=== PATIENT | female | born 1980 | race Caucasian/White ===

== ENCOUNTER 2017-11-24 07:16 | Inpatient (IN) | payer BC, OTHER ==
[2017-11-24] MEDS ORDERED: Dextrose 5 % And 0.9 % NaCl 1,000 ML IV SCH (10:15)
[2017-11-24] MEDS ORDERED: Zolpidem Tartrate 5 MG TAB PO PRN (11:51)
[2017-11-24] MEDS ORDERED: Ondansetron HCl/PF 4 MG/2 ML Vial IVP PRN (11:51)
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
[2017-11-24] MEDS: Acetaminophen 325 MG TAB PO PRN (20:51)
[2017-11-25 04:16] LABS: #Eosinphils 0.1 thou/uL (0.0-0.7); #Lymphocytes 1.5 thou/uL (1.20-3.40); #Monocytes 0.6 thou/uL (0.11-0.59); #Neutrophils 6.5 thou/uL (1.40-6.50); %Basophils 0.1 % (0.0-1.0); %Eosinophils 0.6 % (0.0-10.0); %Monocytes 7.4 % (0.0-10.0); %Neutrophils 74.8 % (42.0-75.0); Hemoglobin 11.4 g/dL (12.0-16.0); Mean Corpuscular Hemoglobin 31.1 pg (27.0-31.0); Mean Corpuscular Volume 91.7 fl (81.0-99.0); Platelet Count 200 thou/uL (130-400); RBC Distribution Width 11.7 % (11.5-14.5); Red Blood Cell (RBC) Count 3.66 mill/uL (4.20-5.40); White Blood Cell (WBC) Count 8.6 thou/uL (4.8-10.8)
[2017-11-25 04:56] LABS: Anion Gap 9 mmol/L (10-20); BUN (Urea Nitrogen) 6 mg/dL (7.0-18.7); Calc. Creatinine Clearance 139 mL/min (70-130); Calcium 8.4 mg/dL (7.8-10.44); Carbon Dioxide 23 mmol/L (22-29); Chloride 109 mmol/L (98-107); Estimated GFR-MDRD Greater than 90; Glucose 106 mg/dL (70-105); Potassium 3.8 mmol/L (3.5-5.1); Sodium 137 mmol/L (136-145)
[2017-11-25] MEDS: Enoxaparin Sodium 40 MG/0.4 ML SYRINGE SC SCH (08:35)
[2017-11-25] MEDS ORDERED: Senokot 8.6 MG TAB PO PRN (14:20)
[2017-11-25] MEDS ORDERED: Polyethylene Glycol 3350 17 GM Packet PO PRN (14:22)
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
[2017-11-25] MEDS: Sodium Chloride 0.9% 1,000 ML IV SCH ×2 (15:43→23:15)
[2017-11-25] MEDS: Fentanyl 100 MCG/2 ML VIAL SLOW IVP PRN ×2 (15:44→18:28)
[2017-11-25] MEDS: Docusate 100 MG CAP PO SCH (20:41)
[2017-11-25] MEDS: Acetaminophen 325 MG TAB PO PRN (20:42)
[2017-11-26] MEDS: traMADol HCl 50 MG TAB PO PRN ×4 (03:46→22:04)
[2017-11-26] MEDS: Fentanyl 100 MCG/2 ML VIAL SLOW IVP PRN ×2 (08:41→19:09)
[2017-11-26] MEDS: Acetaminophen 325 MG TAB PO PRN ×3 (08:44→22:04)
[2017-11-26] MEDS: Docusate 100 MG CAP PO SCH ×2 (08:44→21:06)
[2017-11-26] MEDS: Enoxaparin Sodium 40 MG/0.4 ML SYRINGE SC SCH (08:45)
[2017-11-26] MEDS ORDERED: Famotidine 20 MG TAB PO SCH (09:00)
[2017-11-26 09:12] VITALS: BMI 31.5
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
[2017-11-27] MEDS: Acetaminophen 325 MG TAB PO PRN ×2 (03:30→08:07)
[2017-11-27] MEDS: traMADol HCl 50 MG TAB PO PRN ×2 (03:30→08:07)
[2017-11-27 07:25] VITALS: BP 121/80; TEMP 98.7
[2017-11-27] MEDS: Docusate 100 MG CAP PO SCH (08:08)
[2017-11-27] MEDS: Enoxaparin Sodium 40 MG/0.4 ML SYRINGE SC SCH (08:08)
[2017-11-27] MEDS ORDERED: Silver Sulfadiazine 1% Cream 50 GM JAR TOP SCH (09:00)
== END 2017-11-27 12:27 | disposition home or self-care (01) | DRG 551 ==
LOC: ERS 07:16 → 2SW 08:24 → OBSVTOIN 08:24 → T4-B 16:59
PROVIDERS: ADMIT Internal Medicine; ATTEND Internal Medicine
DX: S32.038A Other fracture of third lumbar vertebra, initial encounter for closed fracture (principal); K85.20 Alcohol induced acute pancreatitis without necrosis or infection; T24.331A Burn of third degree of right lower leg, initial encounter; S32.048A Other fracture of fourth lumbar vertebra, initial encounter for closed fracture; S71.112A Laceration without foreign body, left thigh, initial encounter; F10.129 Alcohol abuse with intoxication, unspecified; Y90.6 Blood alcohol level of 120-199 mg/100 ml; V47.5XXA Car driver injured in collision with fixed or stationary object in traffic accident, initial encounter; Y92.410 Unspecified street and highway as the place of occurrence of the external cause
CPT/HCPCS: 36415; 80048; 82150; 83690; 85025; A4216; G0390; G8978-GP-CJ; G8979-GP-CJ; G8980-GP-CJ; J1650; J2270; J2405; J3010